=== PATIENT | female | born 1955 | race Caucasian/White ===

== ENCOUNTER 2024-11-17 08:25 | Day surgery (SDC) | payer MEDICARE, OTHER ==
[~2024-11-17] VITALS: Ht 160 cm; Wt 83.1 kg
[2024-11-17 14:45] VITALS: BP 115/55
== END 2024-11-17 15:00 | disposition home or self-care (01) ==
LOC: ORSCMMR 08:25 → NM 08:25 → ORSCMMR 08:26 → NM 09:00 → ORSCMMR 15:00 → NM 15:00
PROC: 0HBT0ZZ Excision of Right Breast, Open Approach (ICD-10-PCS; principal; 2024-11-17)
PROC: 07B50ZX Excision of Right Axillary Lymphatic, Open Approach, Diagnostic (ICD-10-PCS; principal; 2024-11-17)
DX: C50.911 Malignant neoplasm of unspecified site of right female breast (principal); D36.0 Benign neoplasm of lymph nodes; Z17.0 Estrogen receptor positive status [ER+]; Z17.22 Progesterone receptor negative status; Z17.32 Human epidermal growth factor receptor 2 negative status; I12.9 Hypertensive chronic kidney disease with stage 1 through stage 4 chronic kidney disease, or unspecified chronic kidney disease; N18.9 Chronic kidney disease, unspecified; E78.5 Hyperlipidemia, unspecified; F17.210 Nicotine dependence, cigarettes, uncomplicated; J45.909 Unspecified asthma, uncomplicated; Z79.899 Other long term (current) drug therapy

== ENCOUNTER 2025-02-26 13:12 | Emergency (ER) | payer MEDICARE, OTHER ==
[~2025-02-26] VITALS: Ht 160 cm; Wt 83.9 kg
[~2025-02-26 13:12] MED LIST: ABILIFY MYCITE2 M2 PO; ALBU90OI INH; AMLO10 PO; ATOR40TA PO; Aldactone25 MG PO; Buspirone HCl15 MG PO; CATAPRES0.1 MG PO; CHLO25B PO; Chantix1 MG PO; Cyclobenzaprine5 MG PO; DIAZ5 PO; DULO60 PO; ESCI20 PO; GABA800 PO; TIZA4 PO; ZESTRIL40 M1 PO; [UNRECOGNIZED DRUG - OTHER] TOP
[2025-02-26 14:15] LABS: BASOPHILS ABSOLUTE AUTO 0.04 K/mm3 (0.00-0.23); BASOPHILS PERCENT AUTO 1 % (0-2); EOSINOPHILS ABSOLUTE AUTO 0.15 K/mm3 (0.00-0.68); EOSINOPHILS PERCENT AUTO 2 % (0-6); Hematocrit 36.3 % (33.0-51.0); Hemoglobin 12.4 g/dL (11.5-16.0); IMMATURE GRAN ABSOLUTE AUTO 0.02 K/mm3 (0.00-0.10); IMMATURE GRAN PERCENT AUTO 0 % (0-1); LYMPHOCYTES ABSOLUTE AUTO 1.41 K/mm3 (0.84-5.20); LYMPHOCYTES PERCENT AUTO 17 % (21-46); MONOCYTES ABSOLUTE AUTO 0.87 K/mm3 (0.16-1.47); MONOCYTES PERCENT AUTO 10 % (4-13); Mean Corpuscular HGB Conc 34.2 g/dL (31.5-36.5); Mean Corpuscular Volume 92 fL (80-100); NEUTROPHILS ABSOLUTE AUTO 6.01 K/mm3 (1.96-9.15); NEUTROPHILS PERCENT AUTO 71 % (41-73); NRBC ABSOLUTE 0.00 K/mm3 (0.00-0.02); NRBC Auto 0.0 /100 WBC (0.0-0.2); Platelet Count 270 K/mm3 (150-400); RDW Coefficient Variation 12.7 % (11.7-14.2); RDW Standard Deviation 42.8 fL (35.1-46.3)
[2025-02-26 14:44] LABS: Alanine Aminotransfer (ALT/SGP 23.0 U/L (12-78); Albumin, Blood 3.4 g/dL (3.4-5.0); Albumin/Globulin Ratio 1.0 (0.8-1.8); Anion Gap 12.0 mmol/L (3-11); Aspartate Aminotrans (AST/SGOT 20.0 U/L (12-37); Bilirubin, Total 0.4 mg/dL (0.1-1.0); Blood Urea Nitrogen 34.0 mg/dL (8-24); CO2, Blood 21.0 mmol/L (21-32); Calcium, Blood 8.7 mg/dL (8.5-10.1); Chloride, Blood 105.0 mmol/L (98-108); Creatinine, Blood 2.58 mg/dL (0.40-1.00); Globulin, Blood 3.5 g/dL (2.2-4.0); Glucose, Blood 111.0 mg/dL (70-99); Potassium, Blood 3.8 mmol/L (3.5-5.5); Sodium, Blood 134.0 mmol/L (136-145); Total Protein, Blood 6.9 g/dL (6.4-8.2)
[2025-02-26] MEDS ORDERED: NS 1,000 ML IV SCH (15:05)
[2025-02-26 15:13] LABS: Osmolality, Serum 293.0 mos/KG (275-300)
[2025-02-26 18:00] VITALS: BP 152/80
== END 2025-02-26 18:20 | disposition home or self-care (01) ==
LOC: ER 13:12
PROVIDERS: Student in an Organized Health Care Education/Training Program
DX: N17.9 Acute kidney failure, unspecified (principal); N18.9 Chronic kidney disease, unspecified; R19.7 Diarrhea, unspecified; E86.0 Dehydration; N26.1 Atrophy of kidney (terminal); Z88.0 Allergy status to penicillin; Z79.899 Other long term (current) drug therapy
CPT/HCPCS: 70450; 76770; 80053; 83930; 84484; 85025; 93005; 93010; 99284-25; A9270; J7030

== ENCOUNTER → 2025-03-13 | Outpatient (CLI) | payer MEDICARE, OTHER | LOC: LAB 16:21 → LAB SHORT 16:21 | DX: R30.0 Dysuria (principal) | CPT/HCPCS: 87086 ==